=== PATIENT | female | born 1975 | race Caucasian/White ===

== ENCOUNTER 2021-01-15 11:49 | Outpatient (REF) | payer BC, MEDICAID, SELFPAY | END 2021-01-15 11:50 | disposition home or self-care (01) | LOC: HO.WFDLDS 11:49 | PROVIDERS: Visit Provider Internal Medicine | DX: Z20.822 Contact with and (suspected) exposure to COVID-19 (principal) | CPT/HCPCS: C9803; U0003; U0005 ==

== ENCOUNTER 2021-07-14 09:41 | Outpatient (REF) | payer BC, MEDICAID, SELFPAY ==
[2021-07-14 10:14] LABS: COVID-19 Test Negative (Negative); IDNOW Serial# 08D9AD1C
== END 2021-07-14 09:42 | disposition home or self-care (01) ==
LOC: HO.LAB 09:41
PROVIDERS: Visit Provider Internal Medicine
DX: Z20.822 Contact with and (suspected) exposure to COVID-19 (principal)
CPT/HCPCS: 87635; C9803